=== PATIENT | male | born 2000 | race Caucasian/White ===

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

== ENCOUNTER 2022-02-24 06:55 | Emergency (ER) | payer OTHER ==
[~2022-02-24] VITALS: Ht 167.6 cm; Wt 66.2 kg
--- NOTE | 2022-02-24 06:57 | NUR ---
ARRIVAL PT ARRIVED AMBULATORY TO ED 4 WITH C/O COUGH AND DIFFICULTY BREATHING. VITALS TAKEN AND DR NOTIFIED.
[2022-02-24 07:03] VITALS: BP 121/79
--- NOTE | 2022-02-24 07:15 | ER.PDOC ---
General Chief Complaint: Cough/Congestion Stated Complaint: DIFFICULTY BREATHING TRAVEL OUT OF US: No Time seen by MD: 07:09 Source: patient Exam Limitations: no limitations History of Present Illness Initial Comments ST and feels like throat is swelling.No fever. Sx began last pm No hx of mono. No abdominal pain History obtained from the patient Timing/Duration: other (since last pm) Severity: moderate Modifying Factors: improves with eating Associated Symptoms: denies symptoms Allergies: Coded Allergies: No Known Allergies (Unverified , 10/21/12) Past Medical History Medical History: no pertinent history Surgical History: no surgical history Family History Significant Family History: no pertinent family hx Social History Smoking: other (unknown) Alcohol Use: none Drug Use: none Reviewed Nursing Reviewed: Vital Signs, Abn. Noted Review of Systems Constitutional: see HPI EENTM: see HPI, throat pain, throat swelling Respiratory: no symptoms reported Cardiovascular: no symptoms reported Gastrointestinal: no symptoms reported Genitourinary: no symptoms reported Musculoskeletal: no symptoms reported Skin: no symptoms reported Psychiatric/Neurological: no symptoms reported Hematologic/Lymphatic: no symptoms reported Immunological/Allergic: no symptoms reported Physical Exam General Appearance: No Apparent Distress, Anxious, Thin EENT: eyes nml inspection, EOM palsy, swelling, tenderness, epistaxis Neck: Non-Tender, Full Range of Motion, Supple, Normal Inspection, Lymphadenopathy (R), Lymphadenopathy (L), Tender Lateral, Tender Midline, Thyromegaly Respiratory: lungs clear, normal breath sounds, no respiratory distress CVS: reg rate & rhythm, no murmur Gastrointestinal: No Organomegaly, No Pulsatile Mass, Non Tender Rectal: Deferred Back: Normal Inspection Extremities: Normal Range of Motion Neurologic/Psychiatric: 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 as Tested Skin: Normal Color Lymphatic: No Adenopathy Results/Orders Results/Orders Vital Signs Date Time Temp Pulse Resp B/P (MAP) Pulse Ox O2 Delivery O2 Flow Rate FiO2 02/24/22 07:03 98.2 95 18 02/24/22 07:03 98.2 95 18 121/79 (93) 97 Room Air* 0 21 02/24/22 07:03 98.2 95 18 97 ER DEPART Departure Time of Disposition: 07:14 Disposition: 01 HOME / SELF CARE / HOMELESS Impression: Primary Impression: Acute pharyngitis Condition: Stable Referrals: PCP,UNKNOWN (PCP) PRIMARY CARE PROVIDER Duration or Time Spent with Pa: 10 Return to Work/School Can a patient return to work?: Yes Can a patient return to school: Yes FRANCESCO RAMIREZ MD Feb 24, 2022 07:15
== END 2022-02-24 07:17 | disposition home or self-care (01) ==
LOC: ER 06:55
DX: J02.9 Acute pharyngitis, unspecified (principal)
CPT/HCPCS: 99283